=== PATIENT | male | born 1980 | race Caucasian/White ===

== ENCOUNTER 2021-06-16 00:25 | Emergency (ER) | payer OTHER ==
[~2021-06-16] VITALS: Ht 180.3 cm; Wt 87.3 kg
[2021-06-16 02:24] VITALS: BP 119/85
== END 2021-06-16 02:47 | disposition home or self-care (01) ==
LOC: EMS 00:27
DX: S00.83XA Contusion of other part of head, initial encounter (principal); R04.0 Epistaxis; Y04.0XXA Assault by unarmed brawl or fight, initial encounter; Y93.89 Activity, other specified; Y92.89 Other specified places as the place of occurrence of the external cause; Y99.8 Other external cause status
CPT/HCPCS: 99283; Z7502